=== PATIENT | male | born 1970 | race Caucasian/White ===

== ENCOUNTER 2024-06-09 14:34 | Emergency (ER) | payer OTHER, SELFPAY ==
[2024-06-09 14:36] VITALS: BP 134/78; PULSE 94; RESP 18; TEMP 36.6; O2SAT 96
--- NOTE | 2024-06-09 14:47 | ED.WOUNDLAC ---
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 PATIENT DENIES ANY TRAUMA OR PAIN ANYWHERE ELSE. HE DENIES HEAD INJURY OR NECK INJURY OR BACK INJURY. PATIENT IS NOT SURE ABOUT THE LAST TETANUS SHOT. Related Data Home Medications Medication Instructions Recorded Confirmed esomeprazole magnesium 20 mg 20 mg PO DAILY 06/09/24 06/09/24 capsule,delayed release (Nexium) ezetimibe 10 mg tablet (Zetia) 20 mg PO DAILY 06/09/24 06/09/24 lisinopril 20 1 tablet PO DAILY 06/09/24 06/09/24 mg-hydrochlorothiazide 12.5 mg tablet meloxicam 7.5 mg tablet 7.5 mg PO DAILY 06/09/24 06/09/24 metformin 500 mg tablet 500 mg PO BID 06/09/24 06/09/24 Allergies Allergy/AdvReac Type Severity Reaction Status Date / Time No Known Allergies Allergy Verified 06/09/24 14:49 Review of Systems Review of Systems: All systems reviewed & are unremarkable except as noted in HPI and below Course Vital Signs Vital signs: Vital Signs Temperature 36.6 C 06/09/24 14:36 Pulse Rate 94 06/09/24 14:36 Respiratory Rate 18 06/09/24 14:36 Blood Pressure 134/78 06/09/24 14:36 Pulse Oximetry 96 06/09/24 14:36 Oxygen Delivery Room Air 06/09/24 14:36 Temperature 36.6 C 06/09/24 14:36 Pulse Rate 94 06/09/24 14:36 Respiratory Rate 18 06/09/24 14:36 Blood Pressure 134/78 06/09/24 14:36 Pulse Oximetry 96 06/09/24 14:36 Oxygen Delivery Room Air 06/09/24 14:36 Procedures Laceration Laceration 1: Date: 06/09/24 Time: 15:18 Site: hand Side (If applicable): left ( LEFT INDEX) Size (cm): 0.4 Description: other ( SKIN AVULSION, LOSING BLOOD) Depth: simple, single layer Pre-repair: wound explored ====== Skin Level ====== Skin layer closed with: steri strips ====== Subcutaneous Layer ====== ====== Muscle Layer ====== ====== Tendon Layer ====== Laceration 2: Date: 06/09/24 Time: 15:20 Site: lower extremity Side (If applicable): right ( DISTAL RIGHT THIGH MEDIALLY) Size (cm): 4 Description: stellate and clean Depth: simple, single layer Local Anesthetic: lidocaine 1% Amount of anesthesia used (mL): 5 Pre-repair: wound explored and irrigated ====== Skin Level ====== Skin layer closed with: nylon Size (cm): 5-0 Number of sutures: 6 Technique: simple, interrupted ====== Subcutaneous Layer ====== ====== Muscle Layer ====== ====== Tendon Layer ====== Discharge Plan Discharge Clinical Impression: Laceration Patient Disposition: Home, Self-Care Condition: Stable Instructions: Antibiotic Form, Laceration (ED), Steristrips (ED) Additional Instructions: RETURN IF SYMPTOMS ARE WORSENING , CALL YOUR FAMILY PHYSICIAN FOR APPOINTMENT, TAKE TYLENOL NEEDED FOR ACHES AND PAIN, CONTINUE HOME MEDICATIONS. REMOVE STITCHES IN 8 DAYS TOPICAL NEOSPORIN TWICE A DAY FOR 3 DAYS Prescriptions: New cephalexin 500 mg capsule 500 mg PO Q6H 7 Days Qty: 28 0RF No Action metformin 500 mg Tablet 500 mg PO BID lisinopril-hydrochlorothiazide 20-12.5 mg Tablet 1 tablet PO DAILY meloxicam 7.5 mg Tablet 7.5 mg PO DAILY esomeprazole magnesium [Nexium] 20 mg Capsule,Delayed Release(Dr/Ec) 20 mg PO DAILY ezetimibe [Zetia] 10 mg Tablet 20 mg PO DAILY Follow-up/Referrals: UNKNOWN,DOCTOR [Primary Care Provider] - Stand Alone Forms: Work/School Release IP
[2024-06-09] MEDS: TETANUS,DIPHTHERIA,AC PERTUSSIS ADULT 0.5 ML (ADACEL) IM (15:02)
[2024-06-09] MEDS: LIDOCAINE HCL 1% LOCAL INJ 10 ML VIAL 5 ML INFILTRATE (15:02)
[2024-06-09] MEDS: CEPHALEXIN 500 MG CAPSULE PO (15:20)
== END 2024-06-09 15:35 | disposition home or self-care (01) ==
PROVIDERS: Emergency Provider Emergency Medicine; PCP Physician Assistant
DX: S61.211A Laceration without foreign body of left index finger without damage to nail, initial encounter (principal); S81.811A Laceration without foreign body, right lower leg, initial encounter; Z79.84 Long term (current) use of oral hypoglycemic drugs; Z79.1 Long term (current) use of non-steroidal anti-inflammatories (NSAID); Z79.899 Other long term (current) drug therapy; Z23 Encounter for immunization; W29.8XXA Contact with other powered hand tools and household machinery, initial encounter
CPT/HCPCS: 12002; 90471; 90715; 99283; A9270

== ENCOUNTER 2024-06-17 13:47 | Emergency (ER) | payer OTHER, SELFPAY ==
--- NOTE | ~2024-06-17 | US_ITS ---
EXAMINATION: US venous doppler LE RT DATE: 06/17/2024 14:17 INDICATION: Right lower limb pain. TECHNIQUE: Grayscale ultrasound images without and with compression and Doppler ultrasound images of the right lower extremity veins were obtained. COMPARISON: None. FINDINGS: The visualized portions of right common femoral vein, profunda (deep) femoral vein, femoral vein, pop liteal vein, peroneal veins, posterior tibial veins, and greater saphenous vein outflow are patent. IMPRESSION: 1. No deep venous thrombosis. Reviewed, dictated and finalized at location A.
[2024-06-17 13:47] VITALS: BP 121/77; PULSE 100; RESP 16; TEMP 36.3; O2SAT 96
--- NOTE | 2024-06-17 14:02 | ED.LOWEXIN ---
HPI - Extremity Injury (Lower) General Chief Complaint: Extremity Injury, Lower Stated Complaint: leg pain Time Seen by Provider: 06/17/24 13:55 Source: patient Mode of arrival: ambulatory Limitations: no limitations History of Present Illness HPI Narrative: Patient is a 54-year-old male with a right thigh laceration a week ago and got stitches here at the hospital. He is here now with pain in the right thigh which is going from the area of the wound up to the groin on the right. There is slight redness around the stitch site. No pus or drainage. MD complaint: thigh injury ( Right medial) Onset (ago): week(s) (1) Type of Injury: puncture wound Place: home Severity: mild Severity scale (1-10): 3 Relieving factors: other ( patient on Keflex) Exacerbating factors: nothing Context: direct blow Associated symptoms: ambulatory Other symptoms: none Treatments prior to arrival: bandage Related Data Home Medications Medication Instructions Recorded Confirmed esomeprazole magnesium 20 mg 20 mg PO DAILY 06/09/24 06/17/24 capsule,delayed release (Nexium) ezetimibe 10 mg tablet (Zetia) 20 mg PO DAILY 06/09/24 06/17/24 lisinopril 20 1 tablet PO DAILY 06/09/24 06/17/24 mg-hydrochlorothiazide 12.5 mg tablet meloxicam 7.5 mg tablet 7.5 mg PO DAILY 06/09/24 06/17/24 metformin 500 mg tablet 500 mg PO BID 06/09/24 06/17/24 Allergies Allergy/AdvReac Type Severity Reaction Status Date / Time No Known Allergies Allergy Verified 06/17/24 13:53 Review of Systems Review of Systems: All systems reviewed & are unremarkable except as noted in HPI and below Constitutional: Constitutional: Reports no additional constitutional complaints Eyes: Eyes: Reports no additional eye complaints ENT: Reports system reviewed and no additional complaints, except as documented Cardiovascular: Cardiovascular: Reports no additional cardiovascular complaints Respiratory: Respiratory: Reports no additional respiratory complaints Gastrointestinal: Gastrointestinal: Reports no additional gastrointestinal complaints Genitourinary: Genitourinary: Reports no additional male genitourinary complaints Musculoskeletal: Musculoskeletal: Reports no additional musculoskeletal complaints Integumentary/Breasts: Skin/Breast: Reports system reviewed and no additional complaints, except as docu Neurologic: Reports system reviewed and no additional complaints, except as documented Psychiatric: Psychiatric: Reports no additional psychiatric complaints Endocrine: Endocrine: Reports no additional endocrine complaints Hematologic/Lymphatic: Hematologic/Lymphatic: Reports no additional hematologic/lymphatic complaints Allergic/Immunologic: Allergic/Immunologic: Reports no additional allergic/immunologic complaints Exam Const: General: healthy appearing Nutritional Appearance: well nourished Orientation/consciousness: patient oriented x3 HENMT: Head: normal to inspection Ears: external ears normal Face/Nose/Sinus: Normal external nose present Eyes: Conjunctivae: conjunctivae normal Pupils: Equal, round and reactive pupils present EOM: EOMs intact bilaterally Neck: Neck: normal visual inspection Chest: Chest palpation & inspection: normal inspection of the chest Resp: Effort & Inspection: normal respiratory effort and not labored Auscultation: clear to auscultation bilaterally and no crackles Cardio: Rate: regular rate Rhythm: regular rhythm Heart sounds: no murmurs GI: Inspection: non-distended GI Palp: Yes Soft to palpation and No Tenderness to palpation present (GI) Auscultation: normal bowel sounds : General: Yes bladder normal to palpation Back/Spine/Pelvis: Back: no CVA tenderness Skin: General skin exam: normal color Rashes: no rashes Wounds: wound noted Other: right inner thigh proximal to the knee has a approximately 5 cm linear laceration with sutures in place simple variety; erythema around the sutures noted witho
[2024-06-17 15:20] VITALS: BP 118/64; PULSE 63; RESP 16; TEMP 36.8; O2SAT 99
== END 2024-06-17 15:20 | disposition home or self-care (01) ==
PROVIDERS: Emergency Provider Emergency Medicine; PCP Physician Assistant
DX: L03.115 Cellulitis of right lower limb (principal); Z79.899 Other long term (current) drug therapy; Z79.84 Long term (current) use of oral hypoglycemic drugs
CPT/HCPCS: 93971; 99284